=== PATIENT | male | born 1950 | race Caucasian/White ===

== ENCOUNTER → 2018-12-27 | Outpatient (CLI) | payer MEDICARE, MEDICAID ==
[2018-12-27 10:29] LABS: ABSOLUTE EOSINOPHILS # (AUTO) 0.2 10^3/uL (0.0-0.6); ABSOLUTE LYMPHOCYTES (AUTO) 0.6 10^3/uL (0.5-4.7); ABSOLUTE MONOCYTES (AUTO) 0.9 10^3/uL (0.1-1.4); ABSOLUTE NEUT (AUTO) 7.9 10^3/uL (1.7-8.2); BASOPHILS % (AUTO) 0.4 % (0-2); HEMATOCRIT 37.8 % (37.9-51.0); HEMOGLOBIN 12.5 g/dL (13.5-17.0); LYMPHOCYTES % (AUTO) 6.6 % (13-45); MEAN CORPUSCULAR HEMOGLOBIN 28.2 pg (27.0-33.4); MEAN CORPUSCULAR HGB CONC 32.9 g/dL (32.0-36.0); MEAN CORPUSCULAR VOLUME 86 fl (80-97); MONOCYTES % (AUTO) 9.1 % (3-13); PLATELET COUNT 164 10^3/uL (150-450); RED BLOOD COUNT 4.42 10^6/uL (4.35-5.55); RED CELL DISTRIBUTION WIDTH 15.4 % (11.5-14.0); SEGMENTED NEUTROPHILS % (AUTO) 81.9 % (42-78); TOTAL CELLS COUNTED % (AUTO) 100 %; WHITE BLOOD COUNT 9.6 10^3/uL (4.0-10.5)
[2018-12-27 10:54] LABS: ALBUMIN 4.4 g/dL (3.5-5.0); ALKALINE PHOSPHATASE 131 U/L (38-126); ANION GAP 14 (5-19); ASPARTATE AMINO TRANSFERASE 20 U/L (17-59); BILIRUBIN,DIRECT 0.8 mg/dL (0.0-0.4); BILIRUBIN,TOTAL 2.4 mg/dL (0.2-1.3); BLOOD UREA NITROGEN 32 mg/dL (7-20); CALCIUM 9.5 mg/dL (8.4-10.2); CARBON DIOXIDE 28 mmol/L (22-30); CHLORIDE 101 mmol/L (98-107); CHOLESTEROL 109.13 mg/dL (0-200); GLUCOSE 149 mg/dL (75-110); POTASSIUM 4.7 mmol/L (3.6-5.0); TOTAL PROTEIN 8.4 g/dL (6.3-8.2); TRIGLYCERIDES 92 mg/dL (<150)
[2018-12-27 11:05] LABS: DIRECT LDL 83 mg/dL (<100)
[2018-12-27 11:15] LABS: FREE T4 (FREE THYROXINE) 1.1 ng/dL (0.78-2.19)
[2018-12-27 11:29] LABS: THYROID STIMULATING HORMONE 1.44 uIU/mL (0.47-4.68)
[2018-12-28 08:40] LABS: PROSTATE SPECIFIC ANTIGEN 3.2 ng/mL (0.0-4.0); PSA % FREE 18.8 % (.); PSA FREE 0.6 ng/mL
[2018-12-28 12:36] LABS: CREATININE URINE 54.8 mg/dL (Not Estab.); MICROALBUMIN URINE 37.9 ug/mL (Not Estab.)
== END ==
LOC: OD 09:40
PROVIDERS: ATTEND Internal Medicine
DX: Z00.00 Encounter for general adult medical examination without abnormal findings (principal); E78.2 Mixed hyperlipidemia; E11.9 Type 2 diabetes mellitus without complications; E55.9 Vitamin D deficiency, unspecified; E66.9 Obesity, unspecified; I10 Essential (primary) hypertension; Z12.5 Encounter for screening for malignant neoplasm of prostate
CPT/HCPCS: 36415; 80053; 80061; 82043; 82306; 82570; 83036; 84154; 84439; 84443; 85025

== ENCOUNTER 2019-07-18 07:48 | Day surgery (SDC) | payer MEDICARE, MEDICAID ==
[~2019-07-18 07:48] MED LIST: CEFAZOLIN SODIUM 2 GM in DEXTROSE 5%-WATER 100 ML IV PRN; LACTATED RINGERS 1000 ML IV PRN
[2019-07-18 08:47] LABS: ABSOLUTE BASOPHILS # (AUTO) 0.1 10^3/uL (0.0-0.2); ABSOLUTE EOSINOPHILS # (AUTO) 0.2 10^3/uL (0.0-0.6); ABSOLUTE LYMPHOCYTES (AUTO) 0.8 10^3/uL (0.5-4.7); ABSOLUTE MONOCYTES (AUTO) 0.6 10^3/uL (0.1-1.4); ABSOLUTE NEUT (AUTO) 4.1 10^3/uL (1.7-8.2); BASOPHILS % (AUTO) 1.3 % (0-2); EOSINOPHILS % (AUTO) 3.4 % (0-6); HEMATOCRIT 34.7 % (37.9-51.0); HEMOGLOBIN 11.8 g/dL (13.5-17.0); LYMPHOCYTES % (AUTO) 14.1 % (13-45); MEAN CORPUSCULAR HEMOGLOBIN 28.2 pg (27.0-33.4); MEAN CORPUSCULAR VOLUME 83 fl (80-97); MONOCYTES % (AUTO) 9.8 % (3-13); PLATELET COUNT 176 10^3/uL (150-450); RED BLOOD COUNT 4.19 10^6/uL (4.35-5.55); RED CELL DISTRIBUTION WIDTH 15.8 % (11.5-14.0); SEGMENTED NEUTROPHILS % (AUTO) 71.4 % (42-78); TOTAL CELLS COUNTED % (AUTO) 100 %; WHITE BLOOD COUNT 5.7 10^3/uL (4.0-10.5)
[2019-07-18 08:55] LABS: INTERNATIONAL RATION (INR) 1.18; PARTIAL THROMBOPLASTIN TIME 31.6 SEC (23.5-35.8); PROTHROMBIN TIME 15.1 SEC (11.4-15.4)
[2019-07-18 09:05] LABS: POTASSIUM 4.8 mmol/L (3.6-5.0)
--- NOTE | 2019-07-18 09:20 | RADIOLOGY REPORT (SQ) ---
EXAM DESCRIPTION: CHEST SINGLE VIEW IMAGES COMPLETED DATE/TIME: 07/18/2019 8:53 am REASON FOR STUDY: PRE OP COMPARISON: 08/27/2008 EXAM PARAMETERS: NUMBER OF VIEWS: One view. TECHNIQUE: Single frontal radiographic view of the chest acquired. RADIATION DOSE: NA LIMITATIONS: None. FINDINGS: LUNGS AND PLEURA: Chronic interstitial changes. No evidence of pulmonary edema or pneumon ia. MEDIASTINUM AND HILAR STRUCTURES: No masses. Contour normal. HEART AND VASCULAR STRUCTURES: Cardiomegaly. Normal vasculature. BONES: No acute findings. HARDWARE: CABG, prosthetic heart valve, right pacemaker. OTHER: No other significant finding. IMPRESSION: NO ACUTE RADIOGRAPHIC FINDING IN THE CHEST. TECHNICAL DOCUMENTATION: JOB ID: [id number] 2010 [employer]- All Rights Reserved Reading location - IP/workstation name: [email or web address]
[2019-07-18] MEDS ORDERED: ROCURONIUM BROMIDE INJ 50 MG/5 ML VIAL IV ONE (09:52)
[2019-07-18] MEDS ORDERED: GLYCOPYRROLATE 1 MG/5 ML VIAL ONE (09:52)
[2019-07-18] MEDS ORDERED: ONDANSETRON HCL INJ/PF 4 MG/2 ML SDV ONE (09:52)
[2019-07-18] MEDS ORDERED: NEOSTIGMINE METHYLSULFATE 10 MG/10 ML VIAL ONE (09:52)
[2019-07-18] MEDS ORDERED: SUCCINYLCHOLINE CHLORIDE INJ 200 MG/10 ML VIAL ONE (09:52)
[2019-07-18] MEDS ORDERED: FENTANYL CITRATE INJ/PF 100 MCG/2 ML AMPUL ONE (10:00)
[2019-07-18] MEDS ORDERED: MIDAZOLAM 2 MG/2 ML INJ ONE (10:00)
[2019-07-18] MEDS ORDERED: MORPHINE SULFATE 10 MG/ML INJ ONE (10:00)
[2019-07-18] MEDS ORDERED: PROPOFOL INJ 200 MG/20 ML VIAL IV ONE (10:01)
[2019-07-18] MEDS ORDERED: LIDOCAINE 2%/EPINEPHRINE INJ 1.7 ML CARTRIDGE ONE ×2 (10:20→10:22)
[2019-07-18] MEDS ORDERED: COCAINE HCL 4% TOPICAL SOLN 4 ML ONE (10:27)
[2019-07-18 10:31] LABS: ANION GAP 11 (5-19); BLOOD UREA NITROGEN 29 mg/dL (7-20); CALCIUM 9.2 mg/dL (8.4-10.2); CARBON DIOXIDE 26 mmol/L (22-30); CHLORIDE 102 mmol/L (98-107)
[2019-07-18 10:34] LABS: GLUCOSE 177 mg/dL (75-110); POTASSIUM 4.8 mmol/L (3.6-5.0)
[2019-07-18] MEDS ORDERED: OXYMETAZOLINE HCL 0.05% NASAL SPRAY 15 ML BOTTLE ONE ×2 (11:35→18:59)
--- NOTE | 2019-07-18 13:27 | EKG REPORT ---
SEVERITY:- ABNORMAL ECG - VENTRICULAR-PACED RHYTHM : Confirmed by: Jovanny Maciel MD 18-Jul-2019 13:25:49
[2019-07-18] MEDS ORDERED: BALANCED SALT IRRIG SOLN COMB2 15 ML BOTTLE ONE (13:37)
--- NOTE | 2019-07-18 17:39 | Operative Report ---
Operative Report-[facility] Operative Report: Date: 18 Jul 2019 History: 68-year-old male with basal cell carcinoma involving the nape of his neck and the left ala. Patient underwent Mohs excision by dermatology on 16 Jul 2019. This resulted in Mohs defect involving the left ala and nape and neck. Patient presents today for a reconstruction of the Mohs defect involving the nape of neck and left ala. Informed consent was obtained from the patient Pre-operative diagnosis: 1. Basal cell carcinoma left ala 2. Basal cell carcinoma posterior neck 3. Mohs defect left ala subunit 4. Mohs defect posterior neck Post operative diagnosis: Same as above Procedure: 1. Nasolabial flap [CPT = 38744] 2. Rhomboid to W-plasty advancement flap, total defect size 20 cm [CPT = 41620] 3. Nasal septoplasty Surgeon: Nicola Buckner MD, FACS, [facility] Anesthesia: GETA Procedure: After receiving informed consent from the patient, was taken to a negative pressure room and was intubated by anesthesia. After 20 minutes, which is the COVID-19 protocol, the patient was taken to the operating room and then placed in the prone position on the operating room table for reconstruction of the posterior neck Mohs defect. The posterior neck defect was oval in shape. The planned procedure was to do a rhomboid to W advancement flap. Using the marking pen a rhomboid was drawn overlying the oval defect. V-shaped limbs were then marked from the midpoint of the rhomboid on either side with a V on one side and inverted V on the other. This was then infiltrated with 2% lidocaine with 100,000 epinephrine. Patient was then prepped and draped in a sterile fashion. A 15 blade was used to incise the rhomboid defect first and then the V limbs were incised. Gorney scissors were used to undermine all the limbs of the flap. Once all the limbs were undermined sufficiently, they were checked to ensure that there was no tension on them. Flaps were then transposed in a D-uindae-apui fashion to close the defect. The flap was closed using 3-0 Monocryl subcuticular suture. Macdoel drain was placed for drainage. Macdoel drain was secured using 4-0 nylon. Hemostasis was obtained using bipolar cautery. Dermabond, Mastisol and pressure dressing were applied. The patient was then turned from the prone position to the supine position. Attention was then directed to the closure of the nasal defect. Cottonoids soaked with 4% cocaine were placed into each nasal cavity for approximately 5 minutes at which time there withdrawn the nasal septum was infiltrated 2% lidocaine 100,000 epinephrine. Cottonoids were replaced. Patient was then prepped and draped in a sterile fashion. 15 blade was used to make a hemitransfixion incision on the left side. A Pascal and the caudal elevator was then used to raise a mucoperichondrial mucoperiosteal flap back to the sphenoid rostrum and onto the nasal floor. The osseous cartilaginous junction was using a D knife. A D knife was used to make a superior incision in the quadrangular cartilage and then a caudal incision was made leaving 2 cm of caudal cartilage. Finally the D knife was used to make an incision along the maxillary crest. A Tadeo elevator was used to raise a mucoperichondrial flap on the right side freeing up the cartilage. The cartilage was then removed and placed in saline. This cartilage is going to be used to clear the nasal defect. The hemitransfixion incision was closed using 4-0 chromic and then a 4-0 plain gut whipstitch used to secure the septal flaps. Castillo splints coated bacitracin placed into each nasal cavity and then secured with a 2-0 Prolene. Afrin saturated cotton was then placed into each nasal cavity. Next the nasolabial crease was marked on the left side. The left nasal Mohs defect was irrigated with saline. A foil was used to make a template of the left alar defect and this was placed along the nasolabial crease. The length of the flap was determined by measuring the length of the defect to the pivot point. This distance was then marked to determine placement of the template for the nasolabial flap. Template was traced on the nasolabial area with a crescent of tissue superior to the flap and a crescent shaped area inferior. Shaped area inferior was to help in closure of the defect. Next a 15 blade was used to make an incision along the nasolabial crease incorporating the margin of the proposed flap. Another incision was made superior. Flap was raised in the subcutaneous plane superior to the facial muscles. The the dissection continued superiorly towards the nose to a point where the flap was able to be rotated into place. Hemostasis was obtained using bipolar cautery. Prior to inset of the flap the previously harvested septal cartilage was made into a 5 x 20 mm piece to be used to provide support of the ala. The superior portion of the alar defect was undermined in the area of the dome region. The cartilage graft was then placed into this pocket and along the alar margin. Cartilage graft was secured with 5-0 PDS and a through and through 4-0 plain gut whipstitch. Once the cartilage graft was in place the flap was inset into the defect. Prior to inset the distal 15 mm of the flap was thinned. The flap was then inset into the defect using 6-0 Prolene. Prior to closing the nasolabial incision, the cheek area was undermined using blunt and sharp dissection. Hemostasis was obtained using bipolar cautery. 5-0 Monocryl was used as a dermal closure and then 6-0 Prolene was used to close the skin. Bacitracin and a dressing applied. Xeroform was placed over the exposed pedicle. Patient was then given back to anesthesia who took the patient to a negative pressure room for extubation. Patient was successfully extubated without complications. Estimated blood loss: 50 mL Fluids: 1500 mL The patient was then transported to the Post Anesthesia Care Unit in stable condition with spontaneous respiration. No complication.
[2019-07-18 20:11] VITALS: BP 123/63
== END 2019-07-18 19:45 | disposition home or self-care (01) ==
LOC: OROUT 07:48
PROVIDERS: ATTEND Otolaryngology
DX: C44.311 Basal cell carcinoma of skin of nose (principal); C44.41 Basal cell carcinoma of skin of scalp and neck; E10.9 Type 1 diabetes mellitus without complications; I10 Essential (primary) hypertension; I25.2 Old myocardial infarction; I25.10 Atherosclerotic heart disease of native coronary artery without angina pectoris; Z79.899 Other long term (current) drug therapy; Z79.01 Long term (current) use of anticoagulants; Z79.82 Long term (current) use of aspirin; Z79.4 Long term (current) use of insulin; Z95.0 Presence of cardiac pacemaker; Z85.038 Personal history of other malignant neoplasm of large intestine
CPT/HCPCS: 36415; 82962; 85025; 85610; 85730; 80048; 71045; 93005; 93010; 15576; 14040; 30520; J2250; J3490 ×3; J0690; J3010; J2270; A9270; J7060; J2704; 160; 82947; 84132; J0330; J2405; J2710

== ENCOUNTER 2019-11-22 06:43 | Day surgery (SDC) | payer MEDICARE, MEDICAID ==
[2019-11-19 10:28] LABS: ANION GAP 11 (5-19); BLOOD UREA NITROGEN 33 mg/dL (7-20); CALCIUM 9.7 mg/dL (8.4-10.2); CARBON DIOXIDE 29 mmol/L (22-30); CHLORIDE 105 mmol/L (98-107); GLUCOSE 109 mg/dL (75-110); POTASSIUM 4.9 mmol/L (3.6-5.0)
--- NOTE | 2019-11-19 11:15 | EKG REPORT ---
SEVERITY:- ABNORMAL ECG - VENTRICULAR-PACED RHYTHM : Confirmed by: Otilio Romo MD 19-Nov-2019 11:14:38
[~2019-11-22 06:43] MED LIST changes: +CEFAZOLIN 2 GM/D5W RTU 2 GM/50 ML RTUPB IV PRN; -CEFAZOLIN SODIUM 2 GM in DEXTROSE 5%-WATER 100 ML IV PRN
[2019-11-22] MEDS ORDERED: CEFAZOLIN 2 GM/D5W RTU 2 GM/50 ML RTUPB IV ONE (07:19)
[2019-11-22] MEDS ORDERED: DEXAMETHASONE SOD PHOSPHATE INJ 4 MG/1 ML VIAL ONE (08:41)
[2019-11-22] MEDS ORDERED: FENTANYL CITRATE INJ/PF 250 MCG/5 ML AMPULE ONE (08:41)
[2019-11-22] MEDS ORDERED: ONDANSETRON HCL INJ/PF 4 MG/2 ML SDV ONE (08:41)
[2019-11-22] MEDS ORDERED: PROPOFOL INJ 200 MG/20 ML VIAL IV ONE (08:41)
[2019-11-22] MEDS ORDERED: MIDAZOLAM 2 MG/2 ML INJ ONE (08:41)
[2019-11-22] MEDS ORDERED: OXYMETAZOLINE HCL 0.05% NASAL SPRAY 15 ML BOTTLE ONE (08:42)
[2019-11-22] MEDS ORDERED: BACITRACIN ZINC OINTMENT 15 GM ONE (08:42)
[2019-11-22] MEDS ORDERED: LIDOCAINE 2%/EPINEPHRINE INJ 1.7 ML CARTRIDGE ONE (08:42)
[2019-11-22] MEDS ORDERED: EPHEDRINE SULFATE INJ 50 MG/1 ML AMPULE ONE (09:57)
[2019-11-22] MEDS ORDERED: MORPHINE SULFATE 10 MG/ML INJ IV PRN (10:04)
[2019-11-22] MEDS ORDERED: ONDANSETRON HCL INJ/PF 4 MG/2 ML SDV IV PRN ×2 (10:04→13:32)
[2019-11-22] MEDS ORDERED: OXYCODONE-ACETAMINOPHEN 5-325 MG TABLET PO PRN ×2 (10:04)
[2019-11-22] MEDS ORDERED: DIPHENHYDRAMINE HCL 50 MG/ML VIAL IV PRN (10:04)
[2019-11-22] MEDS ORDERED: MEPERIDINE HCL/PF INJ 25 MG/1 ML DISP.SYRIN IV PRN (10:04)
[2019-11-22] MEDS ORDERED: PROMETHAZINE HCL INJ 25 MG/1 ML VIAL IV PRN ×2 (10:04)
[2019-11-22] MEDS ORDERED: FENTANYL CITRATE INJ/PF 100 MCG/2 ML AMPUL IV PRN ×3 (10:04)
[2019-11-22] MEDS ORDERED: PHENYLEPHRINE HCL INJ/PF 10 MG/1 ML SDV ONE (10:57)
[2019-11-22] MEDS ORDERED: NORMAL SALINE INJ/PF 0.9% 10 ML SDV ONE (10:57)
[2019-11-22] MEDS ORDERED: VECURONIUM BROMIDE INJ 10 MG VIAL IV ONE (10:57)
[2019-11-22] MEDS ORDERED: LIDOCAINE 2% INJ-PF (20 MG/ML) 2 ML AMPUL ONE (10:57)
[2019-11-22] MEDS ORDERED: GLYCOPYRROLATE 1 MG/5 ML VIAL ONE (10:57)
[2019-11-22] MEDS ORDERED: SUCCINYLCHOLINE CHLORIDE INJ 200 MG/10 ML VIAL ONE (10:57)
[2019-11-22] MEDS ORDERED: FENTANYL CITRATE INJ/PF 100 MCG/2 ML AMPUL ONE (12:35)
[2019-11-22] MEDS ORDERED: BALANCED SALT IRRIG SOLN COMB2 15 ML BOTTLE ONE (12:38)
--- NOTE | 2019-11-22 13:25 | Operative Report ---
Operative Report-[facility] Operative Report: Date: 22 November 2019 History: 69-year-old male with history of basal cell carcinoma of the nose. Patient underwent reconstruction of the left ala Mohs defect using a nasolabial flap in July. On 21 November 2019, the patient underwent Mohs excision of a basal cell carcinoma on the dorsum of the nose. Patient presents today for reconstruction of the nasal dorsal Mohs defect and division and inset left nasolabial flap. Informed consent was obtained from the patient. Pre-operative diagnosis: 1. Basal cell carcinoma left ala 2. Basal cell carcinoma dorsum of the nose Post operative diagnosis: Same as above Procedure: 1. Division and inset nasolabial flap, left [CPT: 86672] 2. Repair of Mohs defect, dorsum of the nose using a Full Thickness Skin Graft [CPT: 38305] Surgeon: Nicola Buckner MD, FACS, [facility] Anesthesia: General via endotracheal intubation Procedure: After receiving informed consent from the patient, the patient was taken to the operating room placed supine on the operating table after successful induction and intubation by anesthesia, the nasolabial flap area was infiltrated 2% lidocaine 100,000 epinephrine. The full-thickness skin graft is going to be harvested from the anterior neck and this area was also infiltrated with 2% lidocaine 100,000 epinephrine. Patient then prepped and draped in sterile fashion. Attention was directed to the division and inset of the nasolabial flap. Using a 15 blade the pedicle of the nasolabial flap was transected and dissected towards the ala. At this point redundant skin was removed and the flap was defatted. Nasolabial flap was then inset in the left ala, using 7-0 Prolene. Attention was directed to the donor site where the superior portion was undermined and closed using 5-0 Monocryl and 7-0 Prolene. Next attention was directed to the Mohs defect on the dorsum of the nose. Surgical marker was used to quinten the margins of the resected area a Telfa pad was then placed over this area and the markings were imprinted on the Telfa pad a marking pen was then used to reinforce the markings on a Telfa and this was then imprinted onto the skin of the anterior neck. The marking pen was used to darken the areas on the anterior neck. A 15 blade was used to make an incision to remove the marked area and this is to be the full-thickness skin graft. Once the full-thickness skin was removed it was defatted using iris scissors. The donor site was then widely undermined. Hemostasis was obtained using bipolar cautery. The wound was irrigated with copious amounts normal saline. The incision was then closed using 4-0 Monocryl. Dermabond, Mastisol, Steri-Strips and a pressure dressing applied. Attention then was directed to the Mohs defect on the dorsum of the nose. Using a 15 blade the edges were freshened and pseudomembrane/eschar was removed. The area was then irrigated with copious amounts normal saline. The full-thickness skin graft was then placed over the Mohs defect and sutured using 5-0 Prolene and 5-0 fast gut. The ends of the 5-0 Prolene were left long as these will be used later to secure the bolster. Bacitracin ointment was then placed over the full-thickness skin graft. A bolster using Xeroform and a bacitracin impregnated cottonball was placed over the full-thickness skin graft and then secured with the previously placed 5-0 Prolene. The patient was then given back to anesthesia who successfully extubated the patient without any complications. Estimated blood loss: 10 mL Fluids: 1200 mL The patient was then transported to the Post Anesthesia Care Unit in stable condition with spontaneous respiration. No complication.
[2019-11-22] MEDS ORDERED: HYDROCODONE/ACETAMINOPHEN 5-325 MG TABLET PO PRN (13:32)
[2019-11-22 16:07] VITALS: BP 145/87
== END 2019-11-22 14:50 | disposition home or self-care (01) ==
LOC: OROUT 06:43
PROVIDERS: ATTEND Otolaryngology
DX: C44.311 Basal cell carcinoma of skin of nose (principal); C44.41 Basal cell carcinoma of skin of scalp and neck; M95.9 Acquired deformity of musculoskeletal system, unspecified; E10.9 Type 1 diabetes mellitus without complications; I10 Essential (primary) hypertension; Z79.899 Other long term (current) drug therapy; Z03.818 Encounter for observation for suspected exposure to other biological agents ruled out
CPT/HCPCS: 93005; 36415 ×2; 82962; 84132; 80048; 93010; 00160; 15630; 15260; U0003; J2250; A9270; J3490 ×7; J1100; J2370; J0330; J2405; J2704; J0690; C9803; 160; 87635; J3010